=== PATIENT | male | born 1995 | race Caucasian/White ===

== ENCOUNTER 2016-07-11 09:15 | Emergency (ER) | payer BC ==
[~2016-07-11] VITALS: Ht 180.3 cm; Wt 74.4 kg
[2016-07-11 09:30] VITALS: BP 111/71
[2016-07-11] MEDS ORDERED: KEFLEX500 MG ORAL (09:30)
[2016-07-11 09:40] VITALS: BP 111/71
--- NOTE | 2016-07-11 09:52 | Emergency Room Report ---
History of Present Illness General Chief Complaint: Skin Rash/Abscess Source: Patient Present Illness HPI 21YOM with 3 days pain, swelling, rash to ventral part of right forearm, associated with "spider bite" but didnt see spider or other insect. Visiting, staying at [facility]. Marked initial area of redness with marker, now much larger circumference. Denies fever/chills, right hand numbness, tingling, reduced strength. Denies feeling systemically ill, history of DM or abscesses. Allergies: Coded Allergies: No Known Allergies (Unverified , 07/11/16) Patient History Past Medical History: none Past Surgical History: none Pertinent Family History: none Social History: Denies: alcohol use, drug use, smoking Immunizations: UTD Reviewed Nursing Documentation: PMH: Agreed, PSxH: Agreed Nursing Documentation-PMH Past Medical History: No Stated History Review of Systems All Other Systems: negative except mentioned in HPI Physical Exam Vital Signs Date Time Temp Pulse Resp B/P Pulse Ox O2 Delivery O2 Flow Rate FiO2 07/11/16 09:24 98.2 66 17 111/71 98 Room Air Sp02 EP Interpretation: reviewed, normal General Appearance: normal inspection, well appearing, no apparent distress, alert Head: atraumatic ENT: normal ENT inspection, hearing grossly normal, normal voice Neck: normal inspection, full range of motion, supple, no bony tend Respiratory: normal inspection, lungs clear, normal breath sounds, no respiratory distress, no retraction, no wheezing Cardiovascular #1: regular rate, rhythm, no edema Gastrointestinal: normal inspection, normal bowel sounds, non tender, soft, no guarding, no hernia Genitourinary: no CVA tenderness Musculoskeletal: normal inspection, back normal, normal range of motion, Chad' s Sign negative Neurologic: normal inspection, alert, oriented x3, responsive, egg setter III-XII nml as tested, motor strength/tone normal, speech normal Psychiatric: normal inspection, judgement/insight normal, mood/affect normal Skin: other - Right forearm: 4cm circular area of erythema with central pustule. No induration. Medical Decision Making Diagnostic Impression: Primary Impression: Cellulitis Qualified Codes: L03.90 - Cellulitis, unspecified ER Course Right arm cellulitis VSS. Afebrile. No neurovascular involvement Rx Keflex Advised warm compress DC home Last Vital Signs Date Time Temp Pulse Resp B/P Pulse Ox O2 Delivery O2 Flow Rate FiO2 07/11/16 09:40 98.2 66 17 111/71 98 Room Air Status: improved Disposition: HOME, SELF-CARE Condition: Improved Scripts Cephalexin* (KEFLEX*) 500 Mg Capsule 500 MG ORAL Q6H for 7 Days, #28 CAP 0 Refills Prov: CHITO RIVAS M.D. 07/11/16 Patient Instructions: Cellulitis, [id number] CHITO RIVAS M.D. Jul 11, 2016 09:52
== END 2016-07-11 09:40 | disposition home or self-care (01) ==
LOC: EMR 09:30
DX: L03.90 Cellulitis, unspecified (principal)
CPT/HCPCS: 99283